=== PATIENT | male | born 1975 | race African-American/Black ===

== ENCOUNTER 2018-08-06 11:18 | Observation (INO) ==
[2018-08-06] MEDS ORDERED: ASPIRIN 325 MG TABLET PO STA (11:35)
[2018-08-06] MEDS ORDERED: NITROGLYCERIN 2% OINT 1 INCH/GM PACK TOP STA (11:35)
[2018-08-06] MEDS ORDERED: ONDANSETRON 4 MG/2 ML VIAL IV STA (11:35)
[2018-08-06 12:07] LABS: Basophils % 0.2 % (0.0-0.8); Eosinophils # 0.1 10*3/uL (0.0-0.87); Eosinophils % 0.6 % (0.00-10.9); Hematocrit 38.3 VOL% (42.0-52.0); Hemoglobin 13.5 GM/DL (14.0-18.0); Immature Granulocytes % 0.4 %; Immature Granulocytes Absolute 0.03 #; Lymphocytes % 35.2 % (21.2-54.2); Mean Corpuscular HGB Conc 35.2 GM/DL (32-36); Mean Corpuscular Hemoglobin 31 PG (27-34); Mean Corpuscular Volume 87.4 FL (87-102); Mean Platelet Volume 8.5 FL (9.6-12.0); Monocytes # 0.6 10*3/uL (0.11-0.8); Monocytes % 6.9 % (1.7-12.7); Neutrophils # 4.8 10*3/uL (1.4-7.4); Neutrophils % 56.7 % (38.7-73.9); Platelet Count 198 T/CUMM (130-400); Red Blood Count 4.38 MC/CUMM (3.8-5.5); Red Cell Distribution Width 12.8 % (9.3-17.3); White Blood Count 8.4 T/CUMM (4-12)
[2018-08-06] MEDS: PANTOPRAZOLE 40 MG VIAL IV SCH ×2 (12:21→20:25)
[2018-08-06 12:22] LABS: INR 1.1
[2018-08-06 12:30] LABS: Albumin 3.8 G/DL (3.4-5.0); Bilirubin,Total 0.6 MG/DL (0.2-1.0); Calcium 8.6 MG/DL (8.5-10.1); Osmolality,Calculated 280.4 MOS/KG (273-304); Potassium 3.6 MMOL/L (3.5-5.1); Total Protein 7.4 G/DL (6.4-8.3)
[2018-08-06 13:18] LABS: Apearance,Urine CLEAR (Clear); Bilirubin,Urine Negative (Negative); Blood, Urine Negative (Negative); Glucose,Urine (UA) Negative (Negative); Ketones,Urine Negative (Negative); Nitrite,Urine Negative (Negative); Protein,Urine Negative; RBC,Urine <1 /HPF (0-4); Urine Color Straw (Yellow); Urine Specific Gravity 1.039 (1.001-1.035)
[2018-08-06] MEDS ORDERED: MAGNESIUM SULF RIDER 4 GM in PREMIX 1 EACH IV PRN (13:22)
[2018-08-06] MEDS ORDERED: DOCUSATE SODIUM 100 MG CAPSULE PO PRN (13:22)
[2018-08-06] MEDS ORDERED: diphenhydrAMINE CAP 25 MG CAPSULE PO PRN (13:22)
[2018-08-06] MEDS ORDERED: ACETAMINOPHEN 325 MG TABLET PO PRN (13:22)
[2018-08-06] MEDS ORDERED: guaiFENesin/DM ER 600-30 MG TABLET PO PRN (13:22)
[2018-08-06] MEDS ORDERED: NICOTINE 21 MG/24 HR PATCH TRANSDERM PRN (13:22)
[2018-08-06] MEDS ORDERED: MAGNESIUM SULF RIDER 2 GM in PREMIX 1 EACH IV PRN (13:22)
[2018-08-06] MEDS ORDERED: ZALEPLON 5 MG CAPSULE PO PRN (13:22)
[2018-08-06] MEDS ORDERED: ONDANSETRON 4 MG/2 ML VIAL IV PRN (13:22)
[2018-08-06 13:24] LABS: Barbiturates Screen,Urine Negative (Negative); Benzodiazepines Screen,Urine Negative (Negative); Cannabinoid Screen,Urine Positive (Negative); Opiate Screen,Urine Negative (Negative); Phencyclidine Screen,Urine Negative (Negative)
[2018-08-06] MEDS ORDERED: ALUMINUM/MAGNES/SIMETH MAX STR 30 ML UDCUP PO PRN (13:27)
[2018-08-06] MEDS ORDERED: hydrALAZINE 20 MG/1 ML VIAL ONE (13:30)
[2018-08-06] MEDS ORDERED: FUROSEMIDE 20 MG TABLET PO ONE (15:34)
[2018-08-06] MEDS ORDERED: hydrALAZINE 25 MG TABLET PO PRN (15:34)
[2018-08-06] MEDS: ASCORBIC ACID 500 MG TABLET PO SCH (20:25)
[2018-08-07 01:41] LABS: Basophils % 0.5 % (0.0-0.8); Eosinophils # 0.2 10*3/uL (0.0-0.87); Hematocrit 35.3 VOL% (42.0-52.0); Hemoglobin 12.4 GM/DL (14.0-18.0); Immature Granulocytes % 1.1 %; Immature Granulocytes Absolute 0.07 #; Lymphocytes % 31.7 % (21.2-54.2); Mean Corpuscular HGB Conc 35.1 GM/DL (32-36); Mean Corpuscular Hemoglobin 30 PG (27-34); Mean Corpuscular Volume 85.9 FL (87-102); Mean Platelet Volume 8.5 FL (9.6-12.0); Monocytes # 0.7 10*3/uL (0.11-0.8); Monocytes % 10.9 % (1.7-12.7); Neutrophils # 3.4 10*3/uL (1.4-7.4); Neutrophils % 52.8 % (38.7-73.9); Platelet Count 185 T/CUMM (130-400); Red Blood Count 4.11 MC/CUMM (3.8-5.5); Red Cell Distribution Width 13.2 % (9.3-17.3); White Blood Count 6.4 T/CUMM (4-12)
[2018-08-07 02:10] LABS: Calcium 7.7 MG/DL (8.5-10.1); Potassium 3.6 MMOL/L (3.5-5.1)
[2018-08-07] MEDS: PANTOPRAZOLE 40 MG VIAL IV SCH (08:38)
[2018-08-07] MEDS ORDERED: SPIRONOLACTONE 25 MG TABLET PO SCH (09:00)
[2018-08-07] MEDS ORDERED: METOPROLOL SUCCINATE XL 25 MG TABLET PO SCH (09:00)
[2018-08-07] MEDS ORDERED: ASPIRIN EC 81 MG TABLET PO SCH (09:00)
[2018-08-07] MEDS ORDERED: LISINOPRIL 2.5 MG TABLET PO SCH (09:00)
[2018-08-07] MEDS ORDERED: BISACODYL 5 MG TABLET PO PRN (09:29)
[2018-08-07] MEDS: ASCORBIC ACID 500 MG TABLET PO SCH (09:38)
[2018-08-07 11:12] VITALS: BP 120/83
[2018-08-07] MEDS ORDERED: LISINOPRIL 5 MG TABLET PO SCH (13:30)
== END 2018-08-07 14:56 | disposition home or self-care (01) ==
LOC: N.ED 11:18 → N.EDINP 11:18 → N.2W 14:41 → N.TELEN 16:53
PROVIDERS: ADMIT Internal Medicine Clinical Cardiac Electrophysiology; ATTEND Internal Medicine Clinical Cardiac Electrophysiology